=== PATIENT | male | born 1955 | race Caucasian/White ===

== ENCOUNTER → 2023-10-03 13:48 | Outpatient (REF) | payer MEDICARE, SELFPAY | LOC: DHCBC HW 13:48 | PROVIDERS: ATTENDING PHYSICIAN Internal Medicine Cardiovascular Disease; FAMILY PHYSICIAN Family Medicine | DX: I10 Essential (primary) hypertension (principal); I49.3 Ventricular premature depolarization | CPT/HCPCS: 93306 ==

== ENCOUNTER → 2023-10-04 08:14 | Outpatient (REF) | payer MEDICARE, SELFPAY | LOC: RCS 08:14 | PROVIDERS: ATTENDING PHYSICIAN Internal Medicine Cardiovascular Disease; FAMILY PHYSICIAN Family Medicine | DX: I49.3 Ventricular premature depolarization (principal); I10 Essential (primary) hypertension | CPT/HCPCS: 93225; 93226 ==